=== PATIENT | female | born 1970 | race Caucasian/White ===

== ENCOUNTER 2021-03-31 21:04 | Emergency (ER) | payer OTHER ==
[~2021-03-31 21:04] MED LIST: IBUPROFEN800 MG PO; ZOFRAN4 MG PO
[2021-04-01 02:11] LABS: HEMOGLOBIN 12.8 gm/dl (12.3-15.3); RED BLOOD COUNT 4.63 M/UL (4.00-5.10); WHITE BLOOD COUNT 9.4 K/UL (4.5-11.0)
[2021-04-01] MEDS ORDERED: HYDROCODONE-AC1 EAC1 PO (04:50)
== END 2021-04-01 05:05 | disposition home or self-care (01) ==
LOC: ER1 21:04
PROVIDERS: Physician Assistant Medical
DX: S91.201A Unspecified open wound of right great toe with damage to nail, initial encounter (principal); R10.9 Unspecified abdominal pain; G89.29 Other chronic pain; Z90.49 Acquired absence of other specified parts of digestive tract; Z90.710 Acquired absence of both cervix and uterus; Z88.8 Allergy status to other drugs, medicaments and biological substances; Z88.5 Allergy status to narcotic agent; F17.210 Nicotine dependence, cigarettes, uncomplicated; W22.8XXA Striking against or struck by other objects, initial encounter
CPT/HCPCS: 73630; 80053; 82150; 83690; 85025; 96374; 96375; 99284; J2405; J2550